=== PATIENT | female | born 1945 | race Caucasian/White ===

== ENCOUNTER 2017-07-02 12:50 | Emergency (ER) | payer MEDICARE ==
[~2017-07-02 12:50] MED LIST: OMEP20CA11 PO; PRAV20TA2 PO
[2017-07-02 12:52] VITALS: BP 136/78; PULSE 79; RESP 15; O2SAT 99
--- NOTE | 2017-07-02 12:58 | ED.REPORT ---
HPI-Trauma Minor / Fall Date of Service Jul 02, 2017 ED Provider: Dr. Marr Pt is a healthy 72 y/o female presenting to the ED with her due to fall which occurred yesterday at 16:00. About 1 month ago she placed new gravel in the base of her greenhouse. Yesterday she was in the process of replacing the greenhouse's mary and as she was up on a 10 foot ladder, one of the legs of the ladder became unstable due to the new gravel and causing it to tip over. She was able to hang from the roof's rafters with one hand but eventually fell injuring her right ankle and mildly injuring her left shoulder. Chief complaints at this time are right ankle and right foot pain. Pt denies any other site of injury, pain, or other symptoms. Nursing Notes Stated Complaint: 4 FOOT FALL OFF LADDER Chief Complaint: Multiple Trauma/Fall Nursing Notes Reviewed: Yes Allergies: Coded Allergies: Sulfa (Sulfonamide Antibiotics) (Verified Adverse Reaction, Severe, Nausea ,Vomiting, 01/10/16) Scheduled Omeprazole (Omeprazole) 20 Mg Capsule.dr 20 MG PO DAILY Pravastatin (Pravastatin) 20 Mg Tablet 20 MG PO DAILY General Time Seen by MD: 12:57 Chief Complaint Fall Hx Obtained From: Patient Arrived By: Walk-in Onset Occurred: Yesterday Location: Ankle right Foot right Shoulder left Quality: Painful Severity: Current: Moderate Severity: Maximum: Moderate Recent Healthcare: No recent doctor visit, No recent hospitalization Similar Sx Previous: No Past Medical History Past Medical History Denies Past Surgical History knee times 2 Smoking History Never Smoker Social History Alcohol Use: "Social" Drug Use: Denies drug use Other Social History: Occupation lives with Ambulatory Status Independent Review of Systems Musculoskeletal: Reports: Extremity pain, Joint pain Skin: Reports Bruising Neurologic: Denies: Change LOC, Headache, Numbness, Weakness Complete sys rev & neg: except as marked. Physical Exam Initial Vital Signs Vital Signs (First) Date Time Temp Pulse Resp B/P Pulse Ox O2 Delivery O2 Flow Rate FiO2 07/02/17 12:52 37 79 15 136/78 99 Room Air Initial VS: Reviewed, Vital signs normal Head / Eyes: Atraumatic, Normocephalic ENT: Mucous membranes moist, Conjunctiva normal, No scleral icterus Respiratory: Breath sounds normal, Clear to auscultation, No respiratory distress Cardiovascular: Regular rate & rhythm, Heart sounds normal, Intact distal pulses Abdomen / GI: Soft, Non-tender Skin: Warm, Dry, No cyanosis Neurologic: Alert, Oriented, Nonfocal Psychiatric: Mood/affect normal, Behavior normal, Normal thought content General/Constitutional: Awake, Alert, No acute distress, Cooperative, Not toxic appearing Neck: Atraumatic, Supple, No meningismus, Full range of motion, No swelling, Non-tender, No midline vertebral tend Back: Non-tender, No midline vertebral tend Upper Extremity / MS: No deformity, Neurologic intact, Vascular intact L shoulder: Some pain with extreme adduction External rotation nl No pain with palpation of the humerus Lower Extremity / Pelvis / MS: No deformity, Neurologic intact, Vascular intact Tib/fib/knee all normal Ankle / Foot: No deformity, Neurologic intact, Vascular intact Left foot/ankle: Large bruising over the sole of foot Lateral malleolar tenderness and swelling Tenderness over the 5th metatarsal proximally No medial malleolar pain Interpretation & Diagnostics X-Ray Interpretation Xray Interpretation: FINDINGS: Bones: There is a comminuted calcaneal fracture. Fracture lines extend into the posterior, mid and anterior portions of the calcaneus. Bohler's angle measures 22, with a range of normal extending from 20-40 Soft tissues: No tibiotalar joint effusion. Achilles tendon appears normal. IMPRESSION: Comminuted calcaneal fracture extending into all three portions of the calcaneus as above. Dictated by: Ester Fields M.D. on 07/02/2017 at 13:11 Approved by: Ester Fields M.D. on 07/02/2017 at 13:15 X-Ray Ordered: Foot right Interpretation / Wet Read by: Interpret - Radiologist Xray Interpretation: FINDINGS: Bones: There is a comminuted calcaneal fracture. Fracture lines extend into the posterior, mid and anterior portions of the calcaneus. Bohler's angle measures 22, with a range of normal extending from 20-40. Soft tissues: No tibiotalar joint effusion. Achilles tendon appears normal. IMPRESSION: Comminuted calcaneal fracture extending into all three portions of the calcaneus as above. Dictated by: Ester Fields M.D. on 07/02/2017 at 13:16 Approved by: Ester Fields M.D. on 07/02/2017 at 13:17 X-Ray Ordered: Ankle right Interpretation / Wet Read by: Interpret - Radiologist Procedures Splint Application - Fx Mgt Time: 14:32 Procedure Performed by: ED physician Precise Anatomic Location: Left foot/ankle Type of Immobilization: Posterior short leg Post-Procedure / Complications: Cap refill normal, Post splint vascular nl, Post splint neuro nl, Condition improved, Tolerated procedure well, Patient stable Splint Post-Application Eval Extremity Condition: Cap refill < 2 sec, Distal sensation intact, Distal motor Intact, No compartment syndrome Re-Eval/Medical Decision Re-Evaluation/Progress : Time of Eval: 13:49 Re-Evaluation/Progress Note: Pt rechecked. Discussed imaging findings. Informed pt of plan for discharge. Pt understands and agrees with plan for discharge. F/U instructions and RTER warnings given. All questions addressed. Consultation : Referral / Consult Name: Mitch Sewell DPDeo Call Returned at: 13:43 Quality Assistant: Agrees with eval, Agrees with plan Note: Case discussed with podiatry. Recommends splint and f/u in clinic. Counseled Regarding: Diagnosis, Need for follow-up, When/why to return to ED Discharge & Departure Impression: Primary Impression: Calcaneus fracture, right Encounter type: initial encounter Calcaneus location: unspecified portion of calcaneus Fracture type: closed Fracture alignment: nondisplaced Qualified Code: S92.001A - Unspecified fracture of right calcaneus, initial encounter for closed fracture Additional Impression: Fall Encounter type: initial encounter Qualified Code: W19.XXXA - Unspecified fall, initial encounter Disposition: Home Discharge Condition All VS Reviewed: Yes Condition: Stable Patient Instructions: Calcaneal Fracture (ED) Additional Instructions: You have a calcaneus (heel bone) fracture of your left foot. This is a completely non-weight bearing injury. I spoke with a distributor of directories today (Dr. Sewell) who recommended splint placement and follow-up with the podiatry clinic later this week. His contact information has been provided. Please call to schedule an appointment. Keep the splint applied until you are seen by Dr. Sewell. Return to the emergency department for uncontrolled pain, numbness/weakness/ tingling, fever, or for other concerning symptoms. Tylenol or ibuprofen should be sufficient to manage the pain. If not, use hydrocodone/APAP one or 2 tablets every 6 hours. Referrals: Brian Tyler MD (PCP) Mitch Sewell DPM Scribe Attestation Portions of this note were transcribed by Sami Viveros. I, Dr. Marr, personally performed the history, physical exam and medical decision-making; I reviewed and confirmed the accuracy of the information in the transcribed note. copies to: Brian Tyler MD; Mitch Sewell DPM, Kirk H MD Jul 02, 2017 12:57 SAMI VIVEROS Jul 02, 2017 13:05
--- NOTE | 2017-07-02 14:16 | DRSVH ---
PROCEDURE: X-RAY RIGHT FOOT COMPLETE, MINIMUM THREE VIEWS ([id number]) INDICATIONS: trauma TECHNIQUE: 3 views of the foot were acquired. COMPARISON: None. FINDINGS: Bones: There is a comminuted calcaneal fracture. Fracture lines extend into the posterior, mid and an terior portions of the calcaneus. Bohler's angle measures 22, with a range of normal extending from 20-40 Soft tissues: No tibiotalar joint effusion. Achilles tendon appears normal. IMPRESSION: Comminuted calcaneal fracture extending into all three portions of the calcaneus as above . Dictated by: Ester Fields M.D. on 07/02/2017 at 13:11 Approved by: Ester Fields M.D. on 07/02/2017 at 13:15
--- NOTE | 2017-07-02 14:19 | DRSVH ---
PROCEDURE: X-RAY RIGHT ANKLE, MINIMUM THREE VIEWS ([id number]) INDICATIONS: trauma TECHNIQUE: 3 views of the foot were obtained. COMPARISON: [facility], CR, XR FOOT 3VW RT, 07/02/2017, 13:22. FINDINGS: Bones: There is a comminuted calcaneal fracture. Fracture lines extend into the posterior, mid and anterior portions of the calcaneus. Bohler's angle measures 22, with a range of normal extending from 20-40. Soft tissues: No tibiotalar joint effusion. Achilles tendon appears normal. IMPRESSION: Comminuted calcaneal fracture extending into all three portions of the calcaneus as above. Dictated by: Ester Feilds M.D. on 07/02/2017 at 13:16 Approved by: Ester Fields M.D. on 07/02/2017 at 13:17
[2017-07-02] MEDS ORDERED: HYDR-4003 PO (14:50)
[2017-07-02 15:00] VITALS: BP 138/65; PULSE 79; RESP 20; O2SAT 99
== END 2017-07-02 15:02 ==
LOC: SED 12:50
DX: S92.021A Displaced fracture of anterior process of right calcaneus, initial encounter for closed fracture (principal); M25.512 Pain in left shoulder; W11.XXXA Fall on and from ladder, initial encounter; Y93.H3 Activity, building and construction; Y92.008 Other place in unspecified non-institutional (private) residence as the place of occurrence of the external cause; Y99.8 Other external cause status; Z88.2 Allergy status to sulfonamides